=== PATIENT | female | born 1965 | race Caucasian/White ===

== ENCOUNTER 2018-07-13 10:35 | Outpatient (REF) | payer OTHER, SELFPAY ==
--- NOTE | 2018-07-13 10:00 | PAPFT_PTH ---
PATIENT: Esperanza Donnelly LOC: [facility] U#:[id number] AGE/SX: 52/F ROOM: RE07/13/[address]: Johnna Selby : 1965 BED: DIS: 07/13/2018 SPEC #: [id number] RECD: 07/13/18 13:01 STATUS: YASMEEN REMandeep #: [id number] ELLIOT: 07/13/18 10:[address]: Johnna Selby DEPT: [facility] Cytology RECD BY: Kim Fry Tissues: 1 - CX/ENDOCX FOR PAP SMEARS Procedures: PAP THIN PREP/UVM Screening HPV DNA PROBE Comments: [id number]
== END 2018-07-13 10:55 ==
LOC: NCHCN 10:35
PROVIDERS: PCP Family Medicine; Visit Provider Family Medicine
DX: Z00.00 Encounter for general adult medical examination without abnormal findings (principal); Z12.4 Encounter for screening for malignant neoplasm of cervix; Z11.51 Encounter for screening for human papillomavirus (HPV)
CPT/HCPCS: 88142; 87624

== ENCOUNTER 2018-08-31 00:24 | Outpatient (CLI) | payer OTHER, SELFPAY ==
--- NOTE | 2018-08-31 15:13 | DI.MAMMO_ITS ---
SYMPTOM/DIAGNOSIS: SCREENING, Z12.31 MAMMOGRAMS: Mammograms were interpreted according to the usual protocol including computer analysis with CAD system, tomosynthesis and C view imaging. Comparison is made with prior examinations. Breast density, Category B. No suspicious masses or microcalcifications are seen. There is no definite evidence of malignancy. IMPRESSION: Negative mammogram. Routine screening is recommended. Category 1. MQSA ASSESSMENT OF FINDINGS: Negative. Category 1. Patient will receive a letter notifying them of these results. BI-RADS category B. There are scattered areas of fibroglandular density.
== END 2018-08-31 00:44 ==
PROVIDERS: PCP Nurse Practitioner Family; Visit Provider Family Medicine
DX: Z12.31 Encounter for screening mammogram for malignant neoplasm of breast (principal)
CPT/HCPCS: 77063; 77067

== ENCOUNTER 2019-04-19 10:28 | Outpatient (CLI) | payer OTHER, SELFPAY ==
--- NOTE | 2019-04-19 10:34 | DI.RAD_ITS ---
EXAM: XR CLAVICLE RT CLINICAL HISTORY: CLAVICLE PAIN M89.8X88, XRAY STERNUM WELL IF NECESSARY TECHNIQUE: COMPARISON: No exams were available for comparison FINDINGS: Two views were obtained. There are mild degenerative changes at the acromioclavicular and glenohumer al joints. No other significant bony abnormality seen. IMPRESSION:
== END 2019-04-19 10:48 ==
PROVIDERS: PCP Family Medicine; Visit Provider Family Medicine
DX: M25.511 Pain in right shoulder (principal); M19.011 Primary osteoarthritis, right shoulder
CPT/HCPCS: 73000

== ENCOUNTER 2019-07-15 01:13 | Outpatient (CLI) | payer OTHER, SELFPAY ==
[2019-07-15 08:51] LABS: Glucose 86 mg/dL (74-106)
== END 2019-07-15 01:33 ==
LOC: NCHCO 01:13 → LBO 07:29 → NCHCO 07:54
PROVIDERS: PCP Family Medicine; Visit Provider Family Medicine
DX: E66.9 Obesity, unspecified (principal)
CPT/HCPCS: 36415; 82947

== ENCOUNTER 2019-10-22 10:44 | Emergency (ER) | payer OTHER, SELFPAY ==
[2019-10-22] VITALS (26 sets, daily range): BP systolic 121–150; BP diastolic 66–86; PULSE 59–77; RESP 12–22; TEMP 36.6; O2SAT 93–100
[2019-10-22] MEDS: Normal Saline 1,000 ML 150 ML IV (10:50)
--- NOTE | 2019-10-22 10:52 | ED.GENADUL_ITS ---
Discharge Plan Disposition Patient Disposition: HOME Condition: Stable Discharge Details Chief Complaint: Dizzy/Sync Clinical Impression: Dizziness Primary Care Provider: Johnna Selby ED Provider: Earl Beauchamp Home Meds and New Rx's Prescriptions: New ondansetron HCl [Zofran] 4 mg tablet 4 mg PO Q8H PRNQty: 10 RF: 0 meclizine 25 mg tablet 25 mg PO TID PRNQty: 10 RF: 0 No Action multivitamin [Daily Multi-Vitamin] 1 EACH tablet 1 ea PO DAILY RF: 0 vitamin E mixed 400 UNIT tablet 400 unit PO DAILY RF: 0 omeprazole [Prilosec] 20 MG capsule,delayed release(DR/EC) 20 mg PO DAILY RF: 0 naproxen sodium [Aleve] 220 MG tablet 220 mg PO PRN Qty: 2 RF: 0 zolpidem [Ambien] 5 MG tablet 10 mg PO PRN Qty: 1 RF: 0 Probiotic 1 EACH capsule, sprinkle 1 ea PO DAILY RF: 0 cholecalciferol (vitamin D3) [Vitamin D3] 2,000 UNIT capsule 2,000 unit PO DAILY RF: 0 folic acid 800 mcg Tablet 0.8 mg PO DAILY RF: 0 Discharge Instructions Instructions: Dizziness (ED) Additional Instructions: Zofran and meclizine as directed. Please watch for new or worsening symptoms and return to the ER for any concerns. I have spoken with the office of your primary care provider, please follow-up on the fourth as already scheduled. You may call them if you need to be evaluated sooner. Medical Decision Making This is a 53-year-old female with history of GERD, insomnia, obesity, vertigo, presenting with 4-5-day history of which she describes as her typical vertigo. She did take a Zofran and meclizine which was old, possibly , with minimal relief. Clinically she appears well, nontoxic. Outside of the mild nystagmus, she is neurologically intact. She does complain of mild neck discomfort, on the right side. Although clinically I do believe this to be vertigo, certainly need to consider atypical ACS, carotid dissection, intracranial hemorrhage, posterior infarct etc. Will give IV Zofran, oral meclizine, obtain routine cardiac work-up including CTA of head and neck with head Noncon as well. Laboratory values reveal a white count of 6.18 hemoglobin 12.9 hematocrit 40.2. Platelet count 256, INR 1.1 sodium 3.4 chloride 105 carbon dioxide 25.9 BUN 17 creatinine 0.86, GFR greater than 60. Calcium slightly low at 8.0, last calcium was 8.5. Magnesium 2.0, troponin less than 0.05. Urinalysis reveals trace blood, moderate leuk esterase 0-2 red cells and 3-5 white cells. She does not complain of any urinary symptoms, we will not treat for UTI and will await culture. Given the duration of her symptoms, lack of any chest pain, I do believe that a single troponin is certainly reasonable for a rapid cardiac rule out here in the ER. CT head, CTA neck, negative per radiology. Upon reevaluation patient reports that her nausea has resolved completely but does have some dizziness present although it is improving. Will give 2 mg IV Ativan and reassess Upon reassessment patient is resting comfortably. She is neurologically intact, no longer with any nystagmus. She reports that her dizziness is improving but has not resolved completely. I had a long candid conversation with the patient. Certainly MRI could be of benefit for further evaluation of her symptoms, rule out posterior stroke, although certainly does not need to be done an emergent timeframe given the duration of her symptoms. Discussed that I thought she could be safely discharged with prompt outpatient follow-up however she did not feel that this would be safe I could certainly attempt to admit her for observation here to our hospital. She reports that she would like to go home, she was able to sit up without additional dizziness, ambulated steadily, and is now hungry. I explained that I would provide her with a prescription for meclizine and Zofran as her previous prescription very well could be out of date. I attempted to reach out to her primary care provider however I was able to instead talk with the physician covering the practice, Dr. Souza. He is aware of the patient's work-up and will pass along the information to her primary care provider. It appears as though she is already scheduled to be seen as an outpatient through her primary care office on the fourth of next month, next Monday. If patient remains symptomatic likely outpatient MRI would be indicated, Dr. Souza agrees. I did discuss my conversation with her primary care office with the patient, she is aware, will reach out to them if she feels as though she needs to be seen sooner than the fourth otherwise will follow-up as scheduled, and return to the ER for any questions or concerns. Upon discharge patient has no additional questions or concerns, declines observation admission, and is requesting to be discharged home. I do believe that this is perfectly reasonable. ECG Data Attestation: I personally reviewed and interpreted this ECG (s) as follows: Interpretation: EKG performed at 1059. Reviewed interpreted by Dr. Crain. Sinus rhythm, ventricular rate of 71. Short CT. There are nonspecific ST changes without acute ST elevation segments HPI General Mode of arrival: EMS . Date/Time Provider Initiated Documentation: 10/22/19 10:44 . Limitations to Documentation: no limitations . Information obtained by: patient and EMS . HPI Narrative: This is a 53-year-old female with history of GERD, insomnia, obesity, vertigo presenting via EMS for the sensation of dizziness like the room is spinning over the past 4 days. She reports that she had a very similar episode just last month. She was not evaluated at that time and symptoms went away in roughly 3 days. She reports that today the dizziness is less than her episode a month ago but the duration is longer. She took some left over nausea medication and meclizine that she has been prescribed in the past with only mild relief. She reports that she was prescribed meclizine and Zofran in the past as she has had episodes which she describes as a yearly basis. She does report that movement of her head or eyes does exacerbate her symptoms. She does not describe her symptoms as a unsteadiness. She denies recent illness or trauma. She denies headache or visual changes. She does report right-sided neck pain that been going on for approximately 4 months, intermittent, and no real exacerbating factors. She reports over the last month or 2 mild posterior neck discomfort. She did talk with her primary care regarding the neck pain, prescribed Flexeril with no relie f. No imaging was obtained. She denies any chest pain, shortness of breath, fever, numbness, tingling, weakness in her extremities. She does report nausea and vomiting associated with her dizziness. She describes her dizziness as though the room is spinning. She denies dysuria, hematuria, diarrhea, incontinence. Related Data Home Medications Medication Instructions Recorded Confirmed multivitamin [Daily Multi-Vitamin] 1 ea PO DAILY 05/20/13 10/22/19 vitamin E mixed 400 unit PO DAILY 05/20/13 10/22/19 naproxen sodium [Aleve] 220 mg PO PRN #2 05/30/14 10/22/19 omeprazole [Prilosec] 20 mg PO DAILY tab-cap 05/30/14 10/22/19 zolpidem [Ambien] 10 mg PO PRN #1 05/30/14 10/22/19 Probiotic 1 ea PO DAILY cap.[email or web address] 08/25/17 10/22/19 cholecalciferol (vitamin D3) 2,000 unit PO DAILY 11/22/17 10/22/19 [Vitamin D3] folic acid 0.8 mg PO DAILY 10/22/19 10/22/19 meclizine 25 mg PO TID PRN #10 tab 10/22/19 ondansetron HCl [Zofran] 4 mg PO Q8H PRN #10 tab 10/22/19 Previous Rx's Medication Instructions Recorded meclizine 25 mg PO TID PRN #10 tab 10/22/19 ondansetron HCl [Zofran] 4 mg PO Q8H PRN #10 tab 10/22/19 Allergies Allergy/AdvReac Type Severity Reaction Status Date / Time No Known Allergies Allergy Unverified 10/22/19 10:51 General Stated Complaint: Dizzy/Sync TK: 2 Review of Systems Constitutional Constitutional: Denies chills, Denies fatigue, Denies fever(s), Denies headache(s) and Denies weakness Eyes Eyes: Denies change in vision ENT Ears, Nose, Mouth, and Throat: Reports vertigo, Reports dizziness, Denies headache(s) and Reports neck pain Cardiovascular Cardiovascular: Denies chest pain, Denies syncope and Denies dyspnea Respiratory Respiratory: Denies dyspnea and Denies wheezing Gastrointestinal Gastrointestinal: Denies abdominal pain, Reports nausea and Reports vomiting Genitourinary Genitourinary: Denies dysuria Musculoskeletal Musculoskeletal: Reports back pain (Chronic in nature, lower), Denies myalgias, Reports neck pain, Denies numbness and Denies tingling Integumentary/Breasts Skin/Breast: Denies rash Neurologic Neurologic: Reports vertigo, Reports dizziness, Denies syncope, Denies headach e(s), Denies numbness, Denies radicular pain, Denies tingling and Denies weakness Endocrine Endocrine: Denies fatigue Allergic/Immunologic Allergic/Immunologic: Denies wheezing [facility] Medical History GERD (gastroesophageal reflux disease) Hemorrhoids Insomnia Obesity Situational disturbance Surgical History Colonoscopy - MAC (11/24/17) Ligation of fallopian tube (~1998) , Ectopic (~1995) Ruptured - Left Social History Smoking/Tobacco Use Status: Never Alcohol Intake: never Drug use: Never Do you feel safe at home: Yes Do you feel safe in your relationship?: Yes Exam Const General: cooperative, healthy appearing, comfortable and no acute distress Orientation: alert, awake and oriented x3 HENMT Head: normal to inspection, normocephalic and atraumatic Ears: hearing grossly normal bilaterally, external ears normal, TM's normal bilaterally and EAC's normal Mouth: moist mucous membranes Throat: posterior oropharynx normal Eyes General: appearance normal, both eyes and all related structures Alignment and Position: alignment normal Periorbital: periorbital findings normal Eyelids: eyelids normal Conjunctivae: conjunctivae normal Sclera: sclerae normal Cornea: corneas normal Pupils: PERRL EOM: EOM intact bilaterally and nystagmus (Minimal, left to right) Direct ophthalmoscopy: normal light reflex Neck Neck: normal visual inspection, full ROM, no lymphadenopathy, no meningeal signs, trachea midline and supple Resp Effort & Inspection: normal respiratory effort and able to speak in complete sentences Auscultation: clear to auscultation bilaterally Cardio Rate: regular rate Rhythm: regular rhythm GI Inspection: normal to inspection Palpation: soft, not firm, no guarding, not rigid and nontender Auscultation: normal bowel sounds Back/Spine/Pelvis Back: no CVA tenderness and No back tenderness Skin General skin exam: no rashes or lesions noted Neuro General: patient alert, patient awake, patient oriented x3, moves all extremities and no focal motor deficits Cranial Nerves: CN's II-XI intact bilaterally and nystagmus (Minimal, left to right) Cognition: normal cognition Speech: speech normal Gait: normal gait Motor: muscle tone normal throughout and strength 5/5 throughout Sensory Exam: no sensory deficits noted Coordination: [id number] test normal, shrw-sm-[id number] test normal, Romberg test normal, Does not sway with eyes open and rapid alternating movement UE normal Extrem General: normal to inspection, full ROM, capillary refill normal, no pedal edema and no calf tenderness Psych Appearance: grossly normal Mental Status: mental status grossly normal Speech and Movement: speech and movement normal Affect: normal affect Attitude: cooperative Thought Process: normal Thought Content: normal Insight: insight good Judgment: judgment good Course Vital Signs Vital signs: Vital Signs Temperature 36.6 C 10/22/19 10:44 Pulse 72 10/22/19 10:44 Respiratory Rate 16 10/22/19 10:44 Blood Pressure 146/81 H 10/22/19 10:44 Pulse Oximetry 100 10/22/19 10:44 Temperature 36.6 C 10/22/19 10:44 Temperature Source Temporal Artery Scan 10/22/19 10:44 Pulse 72 10/22/19 10:44 Respiratory Rate 16 10/22/19 10:44 Respiratory Effort Non-Labored 10/22/19 10:50 Blood Pressure 146/81 H 10/22/19 10:44 Blood Pressure Position Supine 10/22/19 10:44 Pulse Oximetry 100 10/22/19 10:44 Oxygen Delivery Method Room Air 10/22/19 10:44 Oxygen Flow Rate 0 10/22/19 10:44 Pain Level 4 10/22/19 10:44 Comment 10/22/19 10:44
[2019-10-22] MEDS: Ondansetron 4 MG/2 ML VIAL IVP (11:37)
[2019-10-22] MEDS: Meclizine 25 MG TAB PO (11:37)
[2019-10-22 11:43] LABS: Abs Immature Grans 0.01 k/cumm (0.0-0.09); Absolute Basophil Count 0.01 k/cumm (0.0-0.2); Absolute Eosinophil Count 0.03 k/cumm (0.0-0.7); Absolute Lymphocyte Count 0.98 k/cumm (1.2-3.4); Absolute Monocyte Count 0.33 k/cumm (0.11-0.7); Absolute Neutrophil Count 4.82 k/cumm (1.2-6.7); Basophils % 0.2; Eosinophils % 0.5; HCT 40.2 % (36.0-46.0); HGB 12.9 g/dL (12.0-15.5); Immature Grans % 0.2 %; Lymphocytes % 15.9; Mean Corp. HGB Concentration 32.1 g/dL (32.0-36.0); Mean Corpuscular Hemoglobin 27.3 pg (27.0-33.0); Mean Corpuscular Volume 85.2 fL (80-95); Mean Platelet Volume 9.1 fL (8.0-11.0); Monocytes % 5.3; Neutrophils % 77.9; Platelet Count 256 x1000/uL (130-400); RBC 4.72 m/cumm (4.00-5.20); RBC Distribution Width 13.2 % (11.7-14.6); White Blood Cell Count 6.18 k/cumm (4.4-10.8)
[2019-10-22 11:49] LABS: INR 1.1 (0.9-1.1); PTT Activated 24.1 sec (21.0-31.4); Prothrombin Time 11.2 sec (9.3-11.0)
[2019-10-22 11:58] LABS: ALT 21 U/L (14-59); AST 19 U/L (15-37); Albumin 3.5 g/dL (3.4-5.0); Alkaline Phosphatase 64 U/L (46-116); Anion Gap 7.1 mmol/L (3-11); BUN 17 mg/dL (7-18); Bilirubin, Total 0.4 mg/dL (0.2-1.0); CO2 25.9 mmol/L (21.0-32.0); CREATININE 0.86 mg/dL (0.55-1.02); Chloride 105 mmol/L (98-107); Glucose 96 mg/dL (74-106); Potassium 3.4 mmol/L (3.5-5.1); Sodium 138 mmol/L (136-145); Total Protein 6.9 g/dL (6.4-8.2); Troponin I < 0.05 ng/Ml (<0.06)
[2019-10-22 12:10] LABS: Bilirubin Negative (Negative); Blood Trace-intact (Negative); Clarity Clear (Clear); Glucose Negative (Negative); Ketones Negative (Negative); Leukocyte Esterase Moderate (Negative); Nitrite Negative (Negative); Specific Gravity 1.025 (1.005-1.025); Urobilinogen 0.2 EU/dL (Up TO 0.2)
[2019-10-22 12:15] LABS: Bacteria Negative HPF (Negative); Crystals Negative HPF (Negative); Epithelial Cells Negative HPF (Negative); Mucus Moderate (Negative); RBC 0-2 HPF (0-2)
[2019-10-22 12:16] LABS: C & S Indicated? Yes; Casts Negative LPF (Negative)
--- NOTE | 2019-10-22 12:30 | DI.CT_ITS ---
EXAM: CT BRAIN NECK CTA CLINICAL HISTORY: Dizzy, right sided neck pain TECHNIQUE: Axial CT angiography was performed with multi-slice acquisition and multi-planar and/or [address] angiography of the craniocervical region was performed with intravenous infusion of 100 cc of Omni paque 350. COMPARISON: No exams were available for comparison FINDINGS: Noncontrast CT examination of the brain is unremarkable with no evidence of acute intracranial hemor rhage, mass effect, or midline shift. The orbital and temporal bone structures appear intact. Masto id air cells and paranasal sinuses are clear. The lung apices are clear. No cervical mass or adenopathy. Unremarkable appearance of the tracheal laryngeal structures. Aortic arch is unremarkable. The common, internal, and external carotid arteries are unremarkable th roughout the cervical region. No aneurysm, dissection, or stenosis. The cervical portions of the vertebral arteries are unremarkable with no evidence of aneurysm, dissec tion, or stenosis. Intracranially the internal carotid arteries are unremarkable. There is variant configuration of ant erior cerebral arteries but both anterior cerebral arteries appear patent as do their major branches. The middle cerebral arteries show no evidence of occlusion, dissection, or aneurysm. Basilar artery and vertebral arteries are unremarkable except for somewhat diminutive appearance of t he basilar artery. The posterior cerebral arteries are bilaterally supplied mainly across the vice president digital strategist ior communicating arteries. Posterior cerebral arteries and major branches appear intact as visualiz ed. IMPRESSION: No evidence of acute intracranial hemorrhage. Negative CT angiography of the neck and head.
[2019-10-22] MEDS: Omnipaque 350 MG/ML 100 ML BTL IJ (12:31)
[2019-10-22] MEDS: Normal Saline - Diluent 50 ML VIAL IV (12:33)
[2019-10-22] MEDS: LORazepam 2 MG/ML VIAL IVP (12:57)
[2019-10-22 14:53] LABS: Troponin I < 0.05 ng/Ml (<0.06)
== END 2019-10-22 15:09 | disposition home or self-care (01) ==
LOC: ER 14:56
PROVIDERS: Emergency Provider Physician Assistant; PCP Family Medicine
DX: R42 Dizziness and giddiness (principal); R11.0 Nausea
CPT/HCPCS: 70496; 70498; 80053; 93005; 96374; 96375; 99285; 81003; 81015; 83735; 84484; 85025; 85610; 85730; 87086; 93010; 99284; J2060; J2405; J3490

== ENCOUNTER 2019-11-05 15:01 | Outpatient (REF) | payer OTHER, SELFPAY ==
[2019-11-06 13:31] LABS: COVID-19 RT-PCR UVMMC Result Negative (Negative)
== END 2019-11-05 15:21 ==
LOC: NCHCN 15:01
PROVIDERS: PCP Family Medicine; Visit Provider Physician Assistant
DX: J02.9 Acute pharyngitis, unspecified (principal)
CPT/HCPCS: U0003

== ENCOUNTER 2020-02-11 14:08 | Emergency (ER) | payer OTHER, SELFPAY ==
[2020-02-11] VITALS (31 sets, daily range): BP systolic 126–156; BP diastolic 71–89; PULSE 81–99; RESP 13–23; TEMP 36.4; O2SAT 96–99
--- NOTE | 2020-02-11 14:00 | DI.RAD_ITS ---
EXAM: XR CHEST 2V PA LATERAL CLINICAL HISTORY: Chest pain TECHNIQUE: 2D digital imaging was performed. COMPARISON: No exams were available for comparison FINDINGS: MEDIASTINUM: Normal. HEART: Normal. PULMONARY VASCULATURE: Normal. LUNGS: Clear. PLEURAL SPACE: No pleural effusion or pneumothorax. BONE:Normal. IMPRESSION: No acute pulmonary findings. DATA REPOSITORY: RADIATION DOSE DELIVERED:
--- NOTE | 2020-02-11 14:00 | RT.EKG_ITS ---
APPROVED REPORT Exam: Resting ECG Patient Location: E HR:94 bpm ECG Measurements Heart Rate 94 AXIS AK 150 P 69 QRSd 85 QRS 23 QT 356 T 64 QTc 446 Conclusion Sinus rhythm...normal P axis, V-rate 60- 99 Ventricular premature complex...V complex w/ short R-R interval
--- NOTE | 2020-02-11 14:31 | ED.GENADUL_ITS ---
Discharge Plan Disposition Patient Disposition: HOME Condition: Good Discharge Details Chief Complaint: Chest Pain Clinical Impression: Atypical chest pain Primary Care Provider: Johnna Selby ED Provider: Anabelle Rosario Home Meds and New Rx's Prescriptions: Continued multivitamin [Daily Multi-Vitamin] 1 EACH tablet 1 ea PO DAILY RF: 0 vitamin E mixed 400 UNIT tablet 400 unit PO DAILY RF: 0 omeprazole [Prilosec] 20 MG capsule,delayed release(DR/EC) 20 mg PO DAILY RF: 0 naproxen sodium [Aleve] 220 MG tablet 220 mg PO PRN Qty: 2 RF: 0 zolpidem [Ambien] 5 MG tablet 10 mg PO PRN Qty: 1 RF: 0 Probiotic 1 EACH capsule, sprinkle 1 ea PO DAILY RF: 0 cholecalciferol (vitamin D3) [Vitamin D3] 2,000 UNIT capsule 2,000 unit PO DAILY RF: 0 folic acid 800 mcg Tablet 0.8 mg PO DAILY RF: 0 ondansetron HCl [Zofran] 4 mg tablet 4 mg PO Q8H PRNQty: 10 RF: 0 meclizine 25 mg tablet 25 mg PO TID PRNQty: 10 RF: 0 amlodipine 2.5 mg tablet 2.5 mg PO HS RF: 0 Discharge Instructions Instructions: Chest Pain (ED) Additional Instructions: Encourage hydration. Tylenol and ibuprofen as needed for discomfort. Your evaluation here is reassuring. I am concerned about the level of stress you currently have and would like you to take time for yourself. Please reach out again to your therapist and schedule follow-up appointment. I would also like for you to follow-up closely with your primary care physician. If you develop shortness of breath, fevers, increased pain, exertional chest pain or other new/worsening symptom please seek care urgently once again. Stand Alone Forms: Work Release Referrals: Johnna Selby MD [Primary Care Provider] - Discharge Data Discharge Date/Time-TO BE ENTERED AT DEPARTURE: 02/11/20 18:50 Medical Decision Making <Anel Martinez - Last Filed: 02/12/20 10:39> 54-year-old female presents to the ER chief complaint of chest heaviness across chest and both arms and bilateral legs which is intermittent in nature. This began approximately 2 to 3 days ago. Patient denies any nausea, shortness of breath, cough, nausea vomiting diarrhea or any other associated symptoms. She does report that yesterday she did have a large bowel movement which was nondiarrheal in nature. She describes it as just not feeling like herself. Upon initial exam she does not have the sensation. She does have a history of GERD, internal hemorrhoids, insomnia, obesity she is a non-smoker denies any alcohol or drug use. She reports taking one baby aspirin daily and she did take 1 this morning. EKG was reviewed by Som Wolff MD ER attending, please see his official reading, old EKG available for review no significant change noted. At this time work-up ordered including CBC, CMP, magnesium, serial troponins and 2 view chest x-ray. EXAM: XR CHEST 2V PA LATERAL CLINICAL HISTORY: Chest pain TECHNIQUE: 2D digital imaging was performed. COMPARISON: No exams were available for comparison FINDINGS: MEDIASTINUM: Normal. HEART: Normal. PULMONARY VASCULATURE: Normal. LUNGS: Clear. PLEURAL SPACE: No pleural effusion or pneumothorax. BONE:Normal. IMPRESSION: No acute pulmonary findings. At this time work-up is largely unremarkable, CBC is within normal limits, sodium 139, potassium 3.4, glucose 109, initial troponin is within normal limits and is less than 0.05, serial troponin is due at 5 PM and is pending at this time. 1532: Patient reevaluation, discussed lab results up to this point, discussed pending serial troponin, patient verbalized understanding. Patient denies any further episodes of chest pressure or heaviness since arriving in the department. Will repeat serial troponin and expected disposition is discharged home with possible outpatient stress test and follow-up with PCP. Care is to be handed off to oncoming provider KEV Olmstead pending repeat troponin. At this time symptoms are most likely stress reaction. Patient does endorse increased stress related to work and taking care of an ill mother and having a hard time getting of work and finding time. She has been symptom-free since arrival to the ER. <KEV Crenshaw - Last Filed: 02/12/20 22:21> Care transitioned to myself from Anel Martinez NP with repeat troponin. Nitin horvath see her initial documentation regarding history, presentation and exam. Repeat troponin is less than 0.05. Repeat EKG was reviewed by Dr. Wolff and remains unchanged. I discussed these findings with the patient. She continues to be asymptomatic. I did review the history with her once again. These episodes have been coming on when at rest. She has had these historically. Patient does endorse a large amount of stress and becomes quite tearful when discussing this. I am concerned that she is having a stress reaction associated with ill parents, increased time at work, conflict with family members. Patient I did discuss how to avoid and attempt to cope with the stressful situations. She has seen a therapist historically she will contact them again to schedule follow-up appointment. I have also given patient work note at her request. She was given strict return precautions. All of her questions and concerns were addressed, she is in agreement with this plan. HPI <Anel Martinez - Last Filed: 02/12/20 10:39> General Mode of arrival: ambulatory . Date/Time Provider Initiated Documentation: 02/11/20 14:12 . Limitations to Documentation: no limitations . Information obtained by: patient . HPI Narrative: 54-year-old female presents to the ER chief complaint of chest heaviness across chest and both arms and bilateral legs which is intermittent in nature. This began approximately 2 to 3 days ago. Patient denies any nausea, shortness of breath, cough, nausea vomiting diarrhea or any other associated symptoms. She does report that yesterday she did have a large bowel movement which was nondiarrheal in nature. She describes it as just not feeling like herself. Upon initial exam she does not have the sensation. She does have a history of GERD, internal hemorrhoids, insomnia, obesity she is a non-smoker denies any alcohol or drug use. She reports taking one baby aspirin daily and she did take 1 this morning. Related Data Home Medications Medication Instructions Recorded Confirmed multivitamin [Daily Multi-Vitamin] 1 ea PO DAILY 05/20/13 02/11/20 vitamin E mixed 400 unit PO DAILY 05/20/13 02/11/20 naproxen sodium [Aleve] 220 mg PO PRN #2 05/30/14 02/11/20 omeprazole [Prilosec] 20 mg PO DAILY tab-cap 05/30/14 02/11/20 zolpidem [Ambien] 10 mg PO PRN #1 05/30/14 02/11/20 Probiotic 1 ea PO DAILY [email or web address] 08/25/17 02/11/20 cholecalciferol (vitamin D3) 2,000 unit PO DAILY 11/22/17 02/11/20 [Vitamin D3] folic acid 0.8 mg PO DAILY 10/22/19 02/11/20 meclizine 25 mg PO TID PRN #10 tab 10/22/19 02/11/20 ondansetron HCl [Zofran] 4 mg PO Q8H PRN #10 tab 10/22/19 02/11/20 amlodipine 2.5 mg PO HS 02/11/20 02/11/20 Previous Rx's Medication Instructions Recorded meclizine 25 mg PO TID PRN #10 tab 10/22/19 ondansetron HCl [Zofran] 4 mg PO Q8H PRN #10 tab 10/22/19 Allergies Allergy/AdvReac Type Severity Reaction Status Date / Time No Known Allergies Allergy Unverified 02/11/20 14:18 General Stated Complaint: Chest Pain TK: 2 Review of Systems <Anel Martinez - Last Filed: 02/12/20 10:39> Narrative: Constitutional: Negative for weight loss, alert and oriented, well groomed, normal body habitus, appears comfortable. HEENT: Denies trauma, headaches, blurry vision, nasal discharge, sore throat, trouble swallowing. Chest: Denies palpitations, irregular rhythm, positive chest heaviness or weird sensation which radiates from her left chest into her bilateral arms and down anterior thighs. Respiratory: Denies Shortness of breath, cough, hemoptysis. GI: Denies abdominal pain, nausea, vomiting, diarrhea, constipation. : Denies dysuria, hematuria, flank pain, rectal bleeding. Neuro: Denies dizziness, blurry vision, weakness, syncope, headache or facial numbness. Hematologic: Denies easy bruising, intolerance to heat or cold, hair loss. PFSH <Anel aMrtinez - Last Filed: 02/12/20 10:39> Medical History GERD (gastroesophageal reflux disease) Hemorrhoids Insomnia Obesity Situational disturbance Surgical History [place] [facility] [place] Ligation of fallopian tube (~1998) , Ectopic (~1995) Ruptured - Left Social History Smoking/Tobacco Use Status: Never Alcohol Intake: never Drug use: Never Do you feel safe at home: Yes Do you feel safe in your relationship?: Yes Exam <Anel Martinez - Last Filed: 02/12/20 10:39> Narrative Exam Narrative: Constitutional: Alert and oriented x3. Appears stated age. Normal body habitus. Head: Normocephalic, no trauma. Eyes: Pupils PERRLA, Red reflex noted, EOM's intact. Eyelids symmetrical without lesions, discharge, or swelling. ENT: Bilateral TM's WNL, External ear normal to inspection, no mastoid TTP, swelling, or erythema, Nasal turbinates WNL, no nasal discharge. Normal dentition, Posterior pharynx WNL, no exudate. Chest: RRR, Normal S1, S2, distal pulses intact. Resp: Lungs clear to auscultation bilaterally, no wheezes, rales, or rhonchi. Musculoskeletal: Normal gait, 5/5 strength to all four extremities. Skin: No suspicious rashes or lesions. Capillary refill less than 2 sec. Neurologic: Cranial nerves II-XII intact. Alert and oriented x 3. DTR's intact. Hematologic/Lymphatic: No ecchymosis, no lymphadenopathy. Course <Anel Martinez - Last Filed: 02/12/20 10:39> Vital Signs Vital signs: Vital Signs Temperature 36.4 C L 02/11/20 14:12 Pulse 91 H 02/11/20 14:12 Respiratory Rate 19 02/11/20 14:12 Blood Pressure 138/89 02/11/20 14:12 Pulse Oximetry 97 02/11/20 14:12 Temperature 36.4 C L 02/11/20 14:12 Temperature Source Temporal Artery Scan 02/11/20 14:12 Pulse 91 H 02/11/20 14:12 Respiratory Rate 19 02/11/20 14:12 Respiratory Effort Non-Labored 02/11/20 14:17 Blood Pressure 138/89 02/11/20 14:12 Blood Pressure Position Supine 02/11/20 14:12 Pulse Oximetry 97 02/11/20 14:12 Oxygen Delivery Method Room Air 02/11/20 14:12 Oxygen Flow Rate 0 02/11/20 14:12 Pain Level 4 02/11/20 14:12 Sign Out <Anel Martinez - Last Filed: 02/12/20 10:39> Sign Out Data: Sign Out Comment: Pending repeat Troponin and disposition. Last updated by Anel Martinez at 02/11/20 15:43
[2020-02-11] MEDS: Aspirin 81 MG CHEW 243 MG CH (14:32)
[2020-02-11 14:34] LABS: Abs Immature Grans 0.01 10^3/uL (0.0-0.06); Absolute Basophil Count 0.02 10^3/uL (0.0-0.2); Absolute Eosinophil Count 0.06 10^3/uL (0.0-0.7); Absolute Lymphocyte Count 1.68 10^3/uL (1.2-3.4); Absolute Neutrophil Count 4.51 10^3/uL (1.2-6.7); Basophils % 0.3; Eosinophils % 0.9; HGB 14.3 g/dL (11.2-15.7); Immature Grans % 0.1; Lymphocytes % 25.1; MCH 27.2 pg (27.0-33.0); MCHC 31.8 % (32.0-36.0); MCV 85.7 fL (80-95); Neutrophils % 67.6; Nucleated RBC 0 %; Platelet Count 294 10^3/uL (130-400); RBC 5.25 10^6/uL (3.93-5.22); RDW 12.5 % (11.7-14.6); WBC 6.68 10^3/uL (4.4-10.8)
[2020-02-11 14:51] LABS: ALT 26 U/L (14-59); AST 23 U/L (15-37); Albumin 4.2 g/dL (3.4-5.0); Alkaline Phosphatase 89 U/L (46-116); Anion Gap 8.9 mmol/L (3-11); BUN 11 mg/dL (7-18); Bilirubin, Total 0.4 mg/dL (0.2-1.0); CO2 27.1 mmol/L (21.0-32.0); Calcium 8.8 mg/dL (8.5-10.1); Chloride 103 mmol/L (98-107); Glucose 109 mg/dL (74-106); Magnesium 2.4 mg/dL (1.8-2.4); Potassium 3.4 mmol/L (3.5-5.1); Sodium 139 mmol/L (136-145); Total Protein 8.2 g/dL (6.4-8.2)
[2020-02-11 14:53] LABS: Troponin I < 0.05 ng/mL (<0.06)
--- NOTE | 2020-02-11 16:01 | NUR.NOTE ---
Nursing Note: Patient has no complaints. Awaiting repeat troponin. Provided with mikey crackers and cola per patient request, ok to eat per MEE Martinez.
--- NOTE | 2020-02-11 17:00 | RT.EKG_ITS ---
APPROVED REPORT Exam: Resting ECG Patient Location: E HR:81 bpm ECG Measurements Heart Rate 81 AXIS WY 154 P 41 QRSd 90 QRS 3 QT 368 T 51 QTc 427 Conclusion Sinus rhythm...normal P axis, V-rate 60- 99
[2020-02-11 17:54] LABS: Troponin I < 0.05 ng/mL (<0.06)
== END 2020-02-11 18:50 | disposition home or self-care (01) ==
PROVIDERS: Registered Nurse Emergency; Emergency Provider Physician Assistant; PCP Family Medicine
DX: R07.89 Other chest pain (principal); F43.8 Other reactions to severe stress; Z63.79 Other stressful life events affecting family and household; Z56.3 Stressful work schedule
CPT/HCPCS: 36415; 80053; 93005; 99285; 71046; 83735; 84484; 85025; 93010; 99284

== ENCOUNTER 2020-02-12 13:55 | Outpatient (REF) | payer OTHER, SELFPAY ==
[2020-02-15 14:13] LABS: SARS-CoV-2 RNA Undetected (Undetected); SARS-CoV-2 Specimen Source Nasopharynx
== END 2020-02-12 14:15 ==
LOC: NCHCN 13:55
PROVIDERS: PCP Family Medicine; Visit Provider Family Medicine
DX: R05 Cough (principal)
CPT/HCPCS: U0003

== ENCOUNTER 2020-09-11 04:31 | Outpatient (CLI) | payer OTHER, SELFPAY ==
--- NOTE | 2020-09-11 09:40 | DI.MAMMO_ITS ---
EXAM: MAMMO SCREENING CLINICAL HISTORY: SCREENING, Z12.31 TECHNIQUE: Mammograms were interpreted according to the usual protocol including computer analysis w [employer] CAD system, tomosynthesis and C-view imaging. COMPARISON: 2011 through 2018 FINDINGS: The breasts are composed of scattered fibroglandular densities, Breast Density category B. No suspicious masses or suspicious microcalcifications are seen. No skin thickening or abnormal axillary lymph nodes are seen. There has been no significant change from prior exams. IMPRESSION: BI-RADS Category 1, Negative mammogram Yearly screening mammography is recommended. Breast Density - Category B, scattered fibroglandular densities. A negative radiographic report should not delay biopsy if a dominant or clinically suspicious mass is present. Up to ten percent of cancers are not identified on mammography. A negative report may reinforce clinical impression. Adenosis and dense breasts may obscure an underlying neoplasm. False positive reports average 6 to 10%. Patient will receive a letter notifying them of these results.
== END 2020-09-11 04:51 ==
PROVIDERS: PCP Family Medicine; Visit Provider Family Medicine
DX: Z12.31 Encounter for screening mammogram for malignant neoplasm of breast (principal)
CPT/HCPCS: 77063; 77067

== ENCOUNTER 2021-12-01 21:20 | Outpatient (REF) | payer MEDICAID, SELFPAY ==
[2021-12-01 21:46] LABS: Anion Gap 10.6 mmol/L (3-11); BUN 17 mg/dL (7-18); CO2 28.4 mmol/L (21.0-32.0); CREATININE 0.9 mg/dL (0.55-1.02); Calcium 8.4 mg/dL (8.5-10.1); Calculated LDL 160 mg/dL (<100); Chloride 105 mmol/L (98-107); Cholesterol 265 mg/dL (<200); Glucose 92 mg/dL (74-106); HDL Cholesterol 41 mg/dL (40-60); Potassium 4.1 mmol/L (3.5-5.1); Sodium 144 mmol/L (136-145); Triglyceride 320 mg/dL (<150)
[2021-12-01 21:51] LABS: COMMENT (LAB VIEW ONLY) 380.45 mg/dL; Microalb ug/mg Crea 7.2 ug/mg Cr
[2021-12-03 10:19] LABS: HIV-1/2 Ag & Ab Screen Negative (Negative)
[2021-12-03 10:24] LABS: Hepatitis C Ab w Rflx HCV PCR Negative (Negative)
== END 2021-12-01 21:21 | disposition home or self-care (01) ==
LOC: NCHCN 21:20
PROVIDERS: PCP Family Medicine; Visit Provider Family Medicine
DX: I10 Essential (primary) hypertension (principal); Z00.00 Encounter for general adult medical examination without abnormal findings; Z11.4 Encounter for screening for human immunodeficiency virus [HIV]; Z11.59 Encounter for screening for other viral diseases
CPT/HCPCS: 80048; 80061; 86803; 87389; 82043; 82570

== ENCOUNTER → 2022-01-05 02:08 | Outpatient (CLI) | payer MEDICAID, SELFPAY ==
--- NOTE | 2022-01-05 | DI.MAMMO_ITS ---
Exam(s) MAMMO SCREENING EXAM: MAMMO SCREENING CLINICAL HISTORY: SCREENING FOR BREAST CA, Z12.31. TECHNIQUE: Bilateral full field digital CC and MLO mammographic images were obtained with 3D tomosyn thesis and utilizing computer aided detection (CAD). COMPARISON: Prior mammograms were reviewed, the most recent being August 2020. FINDINGS: There are no CAD designations. There are no new spiculated masses nor malignant appearing microcalcification groups. There is no significant architectural distortion nor skin thickening-retraction. IMPRESSION: No radiographic evidence of malignancy. BI-RADS Category 1 - Negative Breast Density - Category B - Scattered areas of fibroglandular density Breast density Category C or D implies that the patient has dense breast tissue. Dense breast tissue can make it harder to find cancer on a mammogram. Dense breast tissue is also associated with an incr eased risk of breast cancer. This information about the result of the mammogram report was provided to the patient to raise their awareness. Use this report when you speak with the patient about their risks for breast cancer, which includes their family history. At that time, you may recommend additional screening tests (Ultrasoun d or MRI) as these tests may add significant information. A negative radiographic report should not delay biopsy if a dominant or clinically suspicious mass is present. Up to ten percent of cancers are not identified on mammography. A negative report may reinforce clinical impression. Adenosis and dense breasts may obscure an underlying neoplasm. False positive reports average 6 to 10%. Patient will receive a letter notifying them of these results.
== END ==
PROVIDERS: PCP Family Medicine; Visit Provider Family Medicine
DX: Z12.31 Encounter for screening mammogram for malignant neoplasm of breast (principal); R92.8 Other abnormal and inconclusive findings on diagnostic imaging of breast
CPT/HCPCS: 77063; 77067

== ENCOUNTER 2022-01-17 17:10 | Outpatient (REF) | payer MEDICAID, SELFPAY ==
[2022-01-17 17:35] LABS: Anion Gap 9.5 mmol/L (3-11); BUN 15 mg/dL (7-18); CO2 31.5 mmol/L (21.0-32.0); CREATININE 0.9 mg/dL (0.55-1.02); Chloride 100 mmol/L (98-107); Glucose 96 mg/dL (74-106); Sodium 141 mmol/L (136-145)
[2022-01-17 17:39] LABS: Hemoglobin A1C 5.5 % (<5.7)
== END 2022-01-17 17:11 | disposition home or self-care (01) ==
LOC: NCHCN 17:10
PROVIDERS: PCP Family Medicine; Visit Provider Family Medicine
DX: Z00.00 Encounter for general adult medical examination without abnormal findings (principal); E66.9 Obesity, unspecified; I10 Essential (primary) hypertension
CPT/HCPCS: 80048; 83036

== ENCOUNTER 2022-02-17 18:10 | Outpatient (REF) | payer MEDICAID, SELFPAY ==
[2022-02-17 16:53] LABS: Anion Gap 11.2 mmol/L (3-11); BUN 12 mg/dL (7-18); CO2 26.8 mmol/L (21.0-32.0); CREATININE 0.8 mg/dL (0.55-1.02); Calcium 8.6 mg/dL (8.5-10.1); Chloride 104 mmol/L (98-107); Glucose 94 mg/dL (74-106); Potassium 3.9 mmol/L (3.5-5.1); Sodium 142 mmol/L (136-145)
== END 2022-02-17 18:11 | disposition home or self-care (01) ==
LOC: NCHCN 18:10
PROVIDERS: PCP Family Medicine; Visit Provider Family Medicine
DX: I10 Essential (primary) hypertension (principal)
CPT/HCPCS: 80048

== ENCOUNTER 2022-12-09 12:34 | Outpatient (REF) | payer MEDICAID, SELFPAY ==
[2022-12-09 15:59] LABS: Anion Gap 8.7 mmol/L (3-11); BUN 14 mg/dL (7-18); CO2 27.3 mmol/L (21.0-32.0); CREATININE 0.8 mg/dL (0.55-1.02); Calcium 8.6 mg/dL (8.5-10.1); Chloride 102 mmol/L (98-107); Estimated GFR 86.42 (mL/min/1.73m2); Glucose 99 mg/dL (74-106); Sodium 138 mmol/L (136-145)
== END 2022-12-09 12:35 | disposition home or self-care (01) ==
LOC: NCHCN 12:34
PROVIDERS: PCP Family Medicine; Visit Provider Family Medicine
DX: I10 Essential (primary) hypertension (principal)
CPT/HCPCS: 80048

== ENCOUNTER 2023-01-09 03:38 | Outpatient (CLI) | payer MEDICAID, SELFPAY ==
--- NOTE | 2023-01-09 | DI.MAMMO_ITS ---
Exam(s) MAMMO SCREENING EXAM: MAMMO SCREENING CLINICAL HISTORY: SCREENING MAMMO FOR BREAST CANCER Z12.31 TECHNIQUE: Mammograms were interpreted according to the usual protocol including computer analysis w [employer] CAD system, tomosynthesis and C-view imaging. COMPARISON: 2013 through 2021 FINDINGS: The breasts are composed of scattered fibroglandular densities, Breast Density category B. No suspicious masses or suspicious microcalcifications are seen. No skin thickening or abnormal axillary lymph nodes are seen. There has been no significant change from prior exams. IMPRESSION: BI-RADS Category 1, Negative mammogram Yearly screening mammography is recommended. Breast Density - Category B, scattered fibroglandular densities. A negative radiographic report should not delay biopsy if a dominant or clinically suspicious mass is present. Up to ten percent of cancers are not identified on mammography. A negative report may reinforce clinical impression. Adenosis and dense breasts may obscure an underlying neoplasm. False positive reports average 6 to 10%. Patient will receive a letter notifying them of these results.
== END 2023-01-09 03:58 ==
LOC: DI 03:39
PROVIDERS: PCP Family Medicine; Visit Provider Family Medicine
DX: Z12.31 Encounter for screening mammogram for malignant neoplasm of breast (principal)
CPT/HCPCS: 77063; 77067

== ENCOUNTER 2023-01-31 19:06 | Outpatient (REF) | payer MEDICAID, SELFPAY ==
[2023-01-31 16:03] LABS: Abs Immature Grans 0.02 10^3/uL (0.0-0.06); Absolute Basophil Count 0.03 10^3/uL (0.0-0.2); Absolute Eosinophil Count 0.06 10^3/uL (0.0-0.7); Absolute Lymphocyte Count 1.37 10^3/uL (1.2-3.4); Absolute Monocyte Count 0.74 10^3/uL (0.1-0.8); Absolute Neutrophil Count 4.39 10^3/uL (1.2-6.7); Basophils % 0.5; Eosinophils % 0.9; HCT 40.5 % (36.0-46.0); Immature Grans % 0.3; Lymphocytes % 20.7; MCH 27.4 pg (27.0-33.0); MCHC 32.1 % (32.0-36.0); MCV 85 fL (80-95); MPV 9.6 fL (8.0-11.0); Monocytes % 11.2; Neutrophils % 66.4; Platelet Count 271 10^3/uL (130-400); RBC 4.75 10^6/uL (3.93-5.22); RDW 13.3 % (11.7-14.6); RDW-SD 41.7 fL; WBC 6.61 10^3/uL (4.4-10.8)
[2023-01-31 16:23] LABS: TSH (W/Ref FT4) 0.61 uIU/mL (0.36-3.74)
== END 2023-01-31 19:07 | disposition home or self-care (01) ==
LOC: NCHCN 19:06
PROVIDERS: PCP Family Medicine; Visit Provider Nurse Practitioner Family
DX: R21 Rash and other nonspecific skin eruption (principal); R53.83 Other fatigue; Z83.49 Family history of other endocrine, nutritional and metabolic diseases
CPT/HCPCS: 84443; 85025

== ENCOUNTER 2023-12-01 14:22 | Outpatient (REF) | payer MEDICAID, SELFPAY ==
[2023-12-01 15:37] LABS: Anion Gap 8.6 mmol/L (3-11); BUN 13 mg/dL (7-18); CO2 27.4 mmol/L (21.0-32.0); Calcium 8.8 mg/dL (8.5-10.1); Chloride 105 mmol/L (98-107); Estimated GFR 65.71 (mL/min/1.73m2); Glucose 98 mg/dL (74-106); Potassium 3.8 mmol/L (3.5-5.1); Sodium 141 mmol/L (136-145)
== END 2023-12-01 14:23 | disposition home or self-care (01) ==
LOC: NCHCN 14:22
PROVIDERS: PCP Family Medicine; Visit Provider Family Medicine
DX: I10 Essential (primary) hypertension (principal)
CPT/HCPCS: 80048

== ENCOUNTER 2023-12-08 16:09 | Outpatient (REF) | payer MEDICAID, SELFPAY ==
--- NOTE | 2023-12-08 14:40 | PAPFT_PTH ---
PATIENT: Esperanza Donnelly LOC: NCN #:[id number] AGE/SX: 58/F ROOM: RE12/08/[address]: Johnna Selby : 1965 BED: DIS: 12/08/2023 SPEC #: [id number] RECD: 12/08/23 18:00 STATUS: YASMEEN MAYNARD #: [id number] ELLIOT: 12/08/23 14:[address]: Johnna Selby DEPT: [facility] Cytology RECD BY: Kim Fry Tissues: 1 - CX/ENDOCX FOR PAP SMEARS Procedures: PAP THIN PREP/UVM Screening HPV DNA PROBE Comments: [id number]
== END 2023-12-08 16:10 | disposition home or self-care (01) ==
LOC: NCHCN 16:09
PROVIDERS: PCP Family Medicine; Visit Provider Family Medicine
DX: Z12.4 Encounter for screening for malignant neoplasm of cervix (principal); Z11.51 Encounter for screening for human papillomavirus (HPV)
CPT/HCPCS: 88142; 87624

== ENCOUNTER → 2024-01-15 01:15 | Outpatient (CLI) | payer MEDICAID, SELFPAY ==
--- NOTE | 2024-01-15 | DI.MAMMO_ITS ---
Exam(s) MAMMO SCREENING EXAM: MAMMO SCREENING CLINICAL HISTORY: SCREENING Z12.31 TECHNIQUE: Bilateral full field digital CC and MLO mammographic images were obtained with 3D tomosyn thesis and utilizing computer aided detection (CAD). COMPARISON: Available for comparison. FINDINGS: Masses/Architectural Distortion: None seen. Microcalcifications: No suspicious pleomorphic-type are seen. Skin Thickening/Nipple Retraction: None. IMPRESSION: 1. No significant interval change with no specific features of malignancy noted. 2. Unless there is more urgent need, screening mammography is recommended, as per [employer] guidelines. BI-RADS Category 1 - Negative Breast Density - Category B - Scattered areas of fibroglandular density Breast density category C or D implies that the patient has dense breast tissue. Dense breast tissue is very common and is not abnormal but dense breast tissue can make it harder to find cancer on a ma mmogram. Also, dense breast tissue may increase their breast cancer risk. This information about the result of the mammogram report was provided to the patient to raise their awareness. Use this report when you speak with the patient about their risks for breast cancer, which includes their family hist ory. At that time, you may recommend for more screening tests (Ultrasound or MRI) as they might be us eful based on their risk. A negative radiographic report should not delay biopsy if a dominant or clinically suspicious mass is present. Up to ten percent of cancers are not identified on mammography. A negative report may reinforce clinical impression. Adenosis and dense breasts may obscure an underlying neoplasm. False positive reports average 6 to 10%. Patient will receive a letter notifying them of these results.
== END ==
PROVIDERS: PCP Family Medicine; Visit Provider Family Medicine
DX: Z12.31 Encounter for screening mammogram for malignant neoplasm of breast (principal)
CPT/HCPCS: 77063; 77067

== ENCOUNTER 2024-06-03 11:20 | Outpatient (REF) | payer MEDICAID, SELFPAY ==
[2024-06-03 14:59] LABS: HCT 43.1 % (36.0-46.0); HGB 13.4 g/dL (11.2-15.7); MCH 27.5 pg (27.0-33.0); MCHC 31.1 % (32.0-36.0); MCV 88 fL (80-95); MPV 9.7 fL (8.0-11.0); Platelet Count 330 10^3/uL (130-400); RBC 4.88 10^6/uL (3.93-5.22); RDW 13.1 % (11.7-14.6); RDW-SD 42.3 fL
[2024-06-03 15:19] LABS: Anion Gap 6.6 mmol/L (3-11); BUN 13 mg/dL (7-18); CO2 31.4 mmol/L (21.0-32.0); CREATININE 0.9 mg/dL (0.55-1.02); Calcium 9.1 mg/dL (8.5-10.1); Chloride 106 mmol/L (98-107); Estimated GFR 74.57 (mL/min/1.73m2); Ferritin 45 ng/mL (8-252); Glucose 95 mg/dL (74-106); Magnesium 2.4 mg/dL (1.8-2.4); Potassium 4.1 mmol/L (3.5-5.1); Sodium 144 mmol/L (136-145)
== END 2024-06-03 11:21 | disposition home or self-care (01) ==
LOC: NCHCN 11:20
PROVIDERS: PCP Family Medicine; Visit Provider Family Medicine
DX: R25.2 Cramp and spasm (principal)
CPT/HCPCS: 80048; 85027; 82728; 83735

== ENCOUNTER 2024-12-02 14:04 | Outpatient (REF) | payer MEDICAID, SELFPAY ==
[2024-12-02 21:47] LABS: Hemoglobin A1C 5.3 % (<5.7)
[2024-12-02 21:56] LABS: TSH (W/Ref FT4) 0.84 uIU/mL (0.36-3.74)
== END 2024-12-02 14:05 | disposition home or self-care (01) ==
LOC: NCHCN 14:04
PROVIDERS: PCP Family Medicine; Visit Provider Family Medicine
DX: E66.9 Obesity, unspecified (principal)
CPT/HCPCS: 83036; 84443

== ENCOUNTER 2025-03-12 15:58 | Outpatient (REF) | payer MEDICAID, SELFPAY ==
[2025-03-12 16:17] LABS: Anion Gap 10.5 mmol/L (3-11); BUN 15 mg/dL (7-18); CO2 27.5 mmol/L (21.0-32.0); Calcium 8.9 mg/dL (8.5-10.1); Chloride 103 mmol/L (98-107); Estimated GFR 85.35 (mL/min/1.73m2); Glucose 94 mg/dL (74-106); Potassium 3.9 mmol/L (3.5-5.1); Sodium 141 mmol/L (136-145)
== END 2025-03-12 15:59 | disposition home or self-care (01) ==
LOC: NCHCN 15:58
PROVIDERS: PCP Family Medicine; Visit Provider Family Medicine
DX: I10 Essential (primary) hypertension (principal)
CPT/HCPCS: 80048

== ENCOUNTER 2025-03-19 01:26 | Outpatient (CLI) | payer MEDICAID, SELFPAY ==
--- NOTE | 2025-03-19 | DI.MAMMO_ITS ---
Exam(s) MAMMO SCREENING EXAM: MAMMO SCREENING CLINICAL HISTORY: SCREENING MAMMO Z12.31 TECHNIQUE: Bilateral full field digital CC and MLO mammographic images were obtained with 3D tomosynthesis and utilizing computer aided detection (CAD). COMPARISON: Comparison is made with prior examinations. FINDINGS: Masses/Architectural Distortion: No suspicious masses or areas of architectural distortion are present. Microcalcifications: No suspicious pleomorphic-type are seen. Skin Thickening/Nipple Retraction: None. IMPRESSION: 1. No significant interval change with no specific features of malignancy noted. 2. Unless there is more urgent need, screening mammography is recommended, as per [employer] guidelines. BI-RADS Category 1 - Negative Breast Density - Category B - There are scattered areas of fibroglandular density. Breast density Category C or D implies that the patient has dense breast tissue. Dense breast tissue can make it harder to find cancer on a mammogram. Dense breast tissue is also associated with an increased risk of breast cancer. This information about the result of the mammogram report was provided to the patient to raise their awareness. Use this report when you speak with the patient about their risks for breast cancer, which includes their family history. At that time, you may recommend additional screening tests (Ultrasound or MRI) as these tests may add significant information. A negative radiographic report should not delay biopsy if a dominant or clinically suspicious mass is present. Up to ten percent of cancers are not identified on mammography. A negative report may reinforce clinical impression. Adenosis and dense breasts may obscure an underlying neoplasm. False positive reports average 6 to 10%. Patient will receive a letter notifying them of these results.
== END 2025-03-19 01:46 ==
PROVIDERS: PCP Family Medicine; Visit Provider Family Medicine
DX: Z12.31 Encounter for screening mammogram for malignant neoplasm of breast (principal)
CPT/HCPCS: 77063; 77067